=== PATIENT | female | born 1965 | race Caucasian/White ===

== ENCOUNTER 2019-06-07 20:36 | Emergency (ER) | payer MEDICAID, SELFPAY ==
[2019-06-07 20:37] VITALS: BP 136/68; PULSE 86; RESP 19; TEMP 36.8; O2SAT 97; BMI 39.9
--- NOTE | 2019-06-07 20:58 | ED_ITS ---
Entered by Fiordaliza Moreira, acting as scribe for Chiquita Luna [place], [facility] [place] - [place]B/Dyspnea General: Chief Complaint: Shortness of Breath/Dyspnea Stated Complaint: SOB Time Seen by Provider: 06/07/19 20:57 Source: patient Mode of arrival: EMS Limitations: no limitations History of Present Illness: HPI Narrative: 53 yo Female presents to ED with complaint of shortness of breath, cough, and chest congestion x 3 days. Pt has a history of asthma and COPD. Pt states that her chest is really tight and whenever she coughs, she can't catch her breath. MD elicited complaint: shortness of breath and cough Pertinent past history: COPD and asthma Onset (ago): day(s) (3) Context: recent illness Timing: progressively worsening Severity: moderate Exacerbating factors: coughing Relieving factors: nothing Known history of: COPD and asthma Associated symptoms: Reports chest congestion, cough and fever(s); Deny abdominal pain, chest pain, nausea, palpitations, polydipsia, polyuria or vomiting Treatment prior to arrival: none Related Data: Home oxygen amount: none Review of Systems General: Reports: 10 or more systems reviewed and unremarkable except in HPI and below Const: Reports: fever; Denies: chills or body aches Eyes: Denies: change in vision or blurry vision ENMT: Denies: throat pain, enlarged tonsils, painful swallowing, hoarseness, mouth pain or swelling of lips/tongue Card: Denies: chest pain, palpitations, irregular heart rhythm, edema or swelling of feet/ankles Resp: Reports: shortness of breath, non-productive cough and chest congestion; Denies: productive cough GI: Denies: abdominal pain, nausea or vomiting : Denies: flank pain, difficulty urinating, painful urination, urinary frequency, urinary urgency or urinary hesitancy Musc: Denies: neck pain, back pain or extremity swelling Skin/Breast: Denies: rash, itching or redness Neuro: Denies: headache, numbness in extremities or weakness in extremities Endo: Denies: excessive urination, excessive thirst or tired all the time PFS ED PFSH: Social History Smoking and tobacco status: former smoker Physical Exam Const: COMMON NORMALS: no apparent distress, average body habitus, oriented x3, no limitations, healthy appearing, alert and well nourished HENMT: COMMON NORMALS: normocephalic, head/scalp atraumatic and moist oral mucous membranes HEAD & SCALP: normocephalic and atraumatic Eye: COMMON NORMALS: PERRL, EOMs intact bilaterally, conjunctivae normal and no scleral icterus CONJUNCTIVA: Yes conjunctivae normal PUPIL: Yes PERRL Neck/C-Spine: COMMON NORMALS: full ROM, supple, no meningeal signs, no JVD and no carotid bruits Chest: COMMONS NORMALS: inspection of chest normal and palpation of chest normal Resp: COMMON NORMALS: normal respiratory effort, no retractions, no use of accessory muscles and percussion normal; negative for clear to auscultation bilaterally AUSCULTATION: not clear to auscultation bilaterally and wheezes PERCUSSION: percussion normal Cardio: COMMON NORMALS: no JVD, regular rate, regular rhythm, S1 normal heart sound, S2 normal heart sound, no gallops, no clicks, no murmurs, no rub and peripheral pulses 2+ throughout RATE: regular rate RHYTHM: regular rhythm HEART SOUNDS: S1 normal and S2 normal PERIPHERAL PULSES: pulses 2+ throughout GI: COMMON NORMALS: normal to inspection, nondistended, normoactive bowel sounds, soft to palpation, non-tender, no hepatosplenomegaly, no masses and no bruits PALPATION: Yes soft and Yes no hepatosplenomegaly : COMMON NORMALS: Yes no CVA tenderness BLADDER/KIDNEY EXAM: Yes no CVA tenderness Back/Pelvis: COMMON NORMALS: no CVA tenderness Extremity: COMMON NORMALS: normal to inspection, full ROM, normal capillary refill, no calf tenderness and no pedal edema Neuro: COMMON NORMALS: oriented x3 SENSORIUM/ORIENTATION: Yes alert MENINGEAL SIGNS: Yes no meningeal signs Skin: COMMON NORMALS: no rashes or lesions noted, no wounds, skin turgor normal, no jaundice, no petechiae and no mottling GENERAL SKIN EXAM: no rashes or lesions noted and turgor normal Course Vital Signs: Vital signs: Vital Signs Temperature 98.3 F 06/07/19 20:37 Pulse Rate 92 06/07/19 23:07 Respiratory Rate 18 06/07/19 23:07 Blood Pressure 142/58 06/07/19 21:37 Pulse Oximetry 94 06/07/19 23:07 MDM - SOB/Dyspnea MDM Narrative: Medical decision making narrative: Patient with clinical features of a COPD exacerbation secondary to a possible right lower lobe pneumonia. She is discharged home on oral steroids and antibiotic. She was given a dose of intravenous ceftriaxone and Solu-Medrol here in the emergency department before discharge. She is to follow-up with her primary care provider or return for any concerns. Differential Diagnosis: Shortness of Breath Differential Diagnosis: Likely acute exacerbation of chronic obstructive airways disease, community acquired pneumonia, asthma with exacerbation and pulmonary embolism (Low pretest probability) Medical Records: Attestation: I reviewed the patient's medical records. Lab Data: Attestation: I reviewed the patient's lab results. Labs: Lab Results 06/07/19 06/07/19 06/07/19 Range/Units 20:47 21:00 21:55 WBC 7.4 (4.0-10.0) 10^3/ uL RBC 4.69 (4.1-5.3) 10^6/u L Hgb 12.4 (11.5-15.3) g/dL Hct 39.5 (37.0-47.0) % MCV 84.2 (81-99) fL MCH 26.4 L (28.0-34.0) pg MCHC 31.4 (30.0-36.0) g/dL RDW 14.5 (12.1-15.1) % Plt Count 237 (130-400) 10^3/c mm MPV 11.9 H (7.4-10.4) fL Neut % (Auto) 82.2 % Lymph % (Auto) 9.5 % Real % (Auto) 7.7 % Eos % (Auto) 0.0 % Baso % (Auto) 0.1 % Neut # (Auto) 6.1 (1.8-7.7) 10^3/u L Lymph # (Auto) 0.7 L (0.8-4.8) 10^3/u L Real # (Auto) 0.6 (0.2-0.9) 10^3/u L Eos # (Auto) 0.0 (0.0-0.8) 10^3/u L Baso # (Auto) 0.0 (0.0-0.1) 10^3/u L Nucleated RBC % (a uto) 0 % Nucleated RBCs # 0.0 /100WBC Sodium 143 (136-145) mmol/L Potassium 3.2 L (3.5-5.1) mmol/L Chloride 104 (98-107) mmol/L Carbon Dioxide 27 (22-29) mmol/L Anion Gap 15.2 (5-19) BUN 8 (6-20) mg/dL Creatinine 0.9 (0.5-0.9) mg/dL GFR Calculation 65.0 L (90-130) mL/min Glucose 126 H (65-115) mg/dL Calcium 9.4 (8.5-10.5) mg/dL Total Bilirubin 0.2 (0.15-1.2) mg/dL AST 27 (0-32) U/L ALT 35 H (0-33) U/L Alkaline Phosphata se 132 H (35-105) IU/L Total Protein 7.3 (6.6-8.7) g/dL Albumin 3.7 (3.5-5.2) g/dL Globulin 3.6 (1.3-4.6) g/dL Influenza Type A A g Negative (Negative) POC Influenza B Ag Negative (Negative) Discharge Plan Discharge Patient Disposition: Home, Self-Care Clinical Impression: Acute exacerbation of chronic obstructive airways disease Community acquired pneumonia Qualifiers: Laterality: right Lung location: lower lobe of lung Qualified Code(s): J18.9 - Pneumonia, unspecified organism Condition: Stable Prescriptions: New azithromycin 250 mg tablet See Rx Instructions .ROUTE .COMPLEX Qty: 6 RF: 0 prednisone 20 mg tablet 40 mg PO DAILY 5 Days Qty: 10 RF: 0 Continued bumetanide 2 mg Tablet 2 mg PO DAILY RF: 0 All Day Allergy (cetirizine) 10 mg Tablet 10 mg PO DAILY RF: 0 tizanidine 4 mg Tablet 4 mg PO Q8H PRN (Reason: Muscle Spasm) RF: 0 dicyclomine 20 mg Tablet 20 mg PO TID RF: 0 hydrocodone-acetaminophen 7.5-325 mg Tablet 1 tab PO Q6H PRN (Reason: Pain) RF: 0 Wixela Inhub 500-50 mcg/dose Blister With Device 1 inh INHALATION BID RF: 0 montelukast 10 mg Tablet 10 mg PO BEDTIME RF: 0 ProAir HFA 90 mcg/actuation Hfa Aerosol Inhaler 2 puff INHALATION Q6H PRN (Reason: shortness of breath) RF: 0 fluticasone propionate 50 mcg/actuation [place],Suspension 2 spray INTRANASAL DAILY RF: 0 Discharge Orders: Discharge Order (Routine); Ordered 06/07/19 Ordered By: Chiquita Luna Referrals: Arben Doyle DO [Primary Care Provider] - 4-7 days Patient Instructions: Chronic Obstructive Pulmonary Disease (ED), Community- acquired Pneumonia (ED) Activity Restrictions/Additional Instructions: Return for any new or worsening symptoms. Follow-up with your primary care provider within 1 week. Use your nebulizer every 4 hours for the next 2 days, and then every 4 hours as needed thereafter. Coding Level of Care Code ED Workflow Developer for Chg Fwd Exam Comprehensive The documentation recorded by the Harish ely Carmen, accurately reflects the service I personally performed and the decisions made by Cherly colindres Adegoke I, MD, [facility] [place] Jun 07, 2019 20:36
--- NOTE | 2019-06-07 21:29 | XR_ITS ---
WS: [id number] PROCEDURE: XR chest 2V* [id number] CLINICAL INFORMATION: cough, shortness of breath COMPARISON: None. FINDINGS: Heart: Cardiomegaly. Lungs: Lungs are clear. No consolidation or pleural fluid. Chronic emphysematous changes. Bones: Thoracic curve convex left. Thoracic kyphosis. XR/XR chest 2V* [id number] IMPRESSION: No acute chest findings.
[2019-06-07 21:37] VITALS: BP 142/58; PULSE 87; RESP 18; O2SAT 96
[2019-06-07] MEDS: ipratropium-albuterol 3 mL Neb INHALATION (21:38)
[2019-06-07 21:39] VITALS: PULSE 83; RESP 22; O2SAT 93
[2019-06-07 21:43] VITALS: PULSE 95; RESP 18; O2SAT 96
[2019-06-07 21:45] LABS: Basophils % 0.1 %; Hematocrit 39.5 % (37.0-47.0); Hemoglobin 12.4 g/dL (11.5-15.3); Lymphocytes # 0.7 10^3/uL (0.8-4.8); Lymphocytes % 9.5 %; Mean Corpuscular HGB Conc 31.4 g/dL (30.0-36.0); Mean Corpuscular Hemoglobin 26.4 pg (28.0-34.0); Mean Corpuscular Volume 84.2 fL (81-99); Mean Platelet Volume 11.9 fL (7.4-10.4); Monocytes # 0.6 10^3/uL (0.2-0.9); Monocytes % 7.7 %; Neutrophils # 6.1 10^3/uL (1.8-7.7); Neutrophils % 82.2 %; Nucleated Red Blood Cells % 0 %; Platelet Count 237 10^3/cmm (130-400); Red Blood Count 4.69 10^6/uL (4.1-5.3); Red Cell Distribution Width 14.5 % (12.1-15.1); White Blood Count 7.4 10^3/uL (4.0-10.0)
[2019-06-07 21:52] LABS: Influenza A by IFA Negative (Negative); Influenza B by IFA Negative (Negative)
[2019-06-07 22:13] LABS: Alanine Aminotransferase 35 U/L (0-33); Albumin Level 3.7 g/dL (3.5-5.2); Alkaline Phosphatase 132 IU/L (35-105); Anion Gap 15.2 (5-19); Aspartate Amino Transferase 27 U/L (0-32); Blood Urea Nitrogen 8 mg/dL (6-20); Calcium 9.4 mg/dL (8.5-10.5); Carbon Dioxide 27 mmol/L (22-29); Chloride 104 mmol/L (98-107); Globulin 3.6 g/dL (1.3-4.6); Glucose 126 mg/dL (65-115); Potassium 3.2 mmol/L (3.5-5.1); Sodium 143 mmol/L (136-145); Total Bilirubin 0.2 mg/dL (0.15-1.2); Total Protein 7.3 g/dL (6.6-8.7)
[2019-06-07 23:07] VITALS: PULSE 92; RESP 18; O2SAT 94
[2019-06-07] MEDS: cefTRIAXone 1,000 MG in sodium chloride 0.9% (plus) 50 ML 100 MG IV (23:24)
[2019-06-07 23:59] VITALS: BP 123/68; PULSE 92; RESP 18; O2SAT 97
== END 2019-06-08 | disposition home or self-care (01) ==
PROVIDERS: Emergency Provider Family Medicine
DX: J44.1 Chronic obstructive pulmonary disease with (acute) exacerbation (principal); J18.9 Pneumonia, unspecified organism; Z79.51 Long term (current) use of inhaled steroids; Z87.891 Personal history of nicotine dependence
CPT/HCPCS: 71046; 80053; 85025; 87804; 94640; 96365; 96375; 99283; 99284; J0696; J2930